=== PATIENT | female | born 1985 | race Caucasian/White ===

== ENCOUNTER 2017-08-03 09:01 | Inpatient (IN) | END 2017-08-06 16:25 | disposition home or self-care (01) | DRG 765 ==

== ENCOUNTER 2018-02-24 06:05 | Day surgery (SDC) | payer OTHER ==
[~2018-02-24] VITALS: Ht 171.4 cm; Wt 118.2 kg
[2018-02-24] VITALS (13 sets, daily range): BP systolic 106–152; BP diastolic 59–90; PULSE 46–68; RESP 13–29; Ht 171.4 cm; Wt 118.2 kg
[~2018-02-24 06:05] MED LIST: LEVO125T58 PO; PRENAT PO
[2018-02-24] MEDS ORDERED: SOD CHLORIDE 0.9% 1,000 ML IV SCH (06:30)
[2018-02-24] MEDS ORDERED: CEFAZOLIN 2 GM/50 ML (PMX) 50 ML IVPB ONE (06:30)
[2018-02-24] MEDS ORDERED: SEVOFLURANE 15 MIN ONE (07:00)
[2018-02-24] MEDS ORDERED: CEFAZOLIN 1 GM INJ ONE (07:00)
[2018-02-24] MEDS ORDERED: BUPIVACAINE 0.25% (MPF) 30 ML INJ ONE (07:43)
[2018-02-24] MEDS ORDERED: POLYMYXIN/BACITRACIN 1L IRRIG ONE (07:43)
--- NOTE | 2018-02-24 08:01 | PREAC ---
Date/Time of Note Date/Time of Note DATE: 02/24/18 TIME: 07:59 Anesthesia Eval and Record Evaluation Time Pre-Procedure Interview DATE: 02/24/18 TIME: 07:59 Age 32 Sex female NPO: 8 hrs Preoperative diagnosis Ventral Hernia Planned procedure lap ventral hernia repair Past Medical History Past Medical History: Includes Endo: Hypothyroid GI: Morbid obesity Surgery & Anesthesia Issues No known issue Meds Anticoagulation: No Beta Leann within 24 hr: No Reason Beta Leann not given: Pt. not on B-Leann Reported Medications Multivit/Min/Fol Ac/Iron/Pren* ( S*) 1 Tab Tab, 1 TAB PO DAILY, TAB 04/29/15 Levothyroxine Sodium (Levothroid) 125 Mcg Tablet, 125 MCG PO DAILY 03/08/13 Current Medications Sodium Chloride 1,000 ml @ 75 mls/hr [id number] IV ; Start 02/24/18 at 06:30; Stop 02/24/18 at 19:49 Meds reviewed: Yes Allergies Coded Allergies: No Known Allergy (Verified , 04/29/15) Allergies Reviewed: Yes Labs/Studies Labs Reviewed: Reviewed by anesthesiologist test: Negative Studies: ECG Pre-procedure Exam Last vitals Vital Signs Date Temp Pulse Resp B/P (MAP) Pulse Ox O2 O2 Flow FiO2 Time Delivery Rate 02/24/18 97.8 63 19 112/59 98 07:11 (76) Airway: Adequate mouth opening, Adequate thyromental dist Mallampati: Mallampati II Teeth: Normal Lung: Normal Heart: Normal ASA Physical Status ASA physical status: 2 Emergency: None Planned Anesthetic General/MAC: ETT Planned Pain Management Parenteral pain med Pre-operative Attestations Prior to commencing anesthesia and surgery, the patient was re-evaluated, there was verification of: *The patient's identity *The results of appropriate recent lab work and preoperative vital signs *The above evaluation not changing prior to induction *Anesthetic plan, risk benefits, alternative and complications discussed with patient/family; questions answered; patient/family understands, accepts and wishes to proceed. TABITHA PHILLIPS MD Feb 24, 2018 08:01
[2018-02-24] MEDS ORDERED: MIDAZOLAM 1 MG/ML 2 ML INJ ONE (08:15)
[2018-02-24] MEDS ORDERED: ONDANSETRON 4 MG INJ ONE ×2 (08:53→09:09)
[2018-02-24] MEDS ORDERED: LIDOCAINE 2% (SDV) 5 ML INJ ONE (08:55)
[2018-02-24] MEDS ORDERED: NEOSTIGMINE 3 MG/3 ML SYRINGE ONE (08:55)
[2018-02-24] MEDS ORDERED: GLYCOPYRROLATE 0.4 MG INJ ONE (08:55)
[2018-02-24] MEDS ORDERED: PROPOFOL 20 ML ONE (08:55)
[2018-02-24] MEDS ORDERED: HYDROmorphONE 1 MG/5 ML IV SYRINGE IV ONE (09:05)
--- NOTE | 2018-02-24 09:06 | PAC ---
Date/Time of Note Date/Time of Note DATE: 02/24/18 TIME: 09:05 Post-Anesthesia Notes Post-Anesthesia Note Last documented vital signs Vital Signs Date Temp Pulse Resp B/P (MAP) Pulse Ox O2 O2 Flow FiO2 Time Delivery Rate 02/24/18 98.0 08:58 02/24/18 63 19 112/59 98 07:11 (76) Activity: WNL Respiratory function: WNL Cardiovascular function: WNL Mental status: Baseline Pain reasonably controlled: Yes Hydration appropriate: Yes Nausea/Vomiting absent: Yes Comments BP:120/70, pulse:64, spo2:100%, T:99,8 TABITHA PHILLIPS MD Feb 24, 2018 09:06
--- NOTE | 2018-02-24 09:07 | OPR ---
Date/Time of Note Date/Time of Note DATE: 02/24/18 TIME: 09:04 Operative Report Procedure Date: Feb 24, 2018 Preoperative Diagnosis incarcerated ventral hernia Postoperative Diagnosis same Operation/Procedure Performed 1. laparoscopic incarcerated ventral hernia repair 2. implantation of bard soft mesh 3. 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 She requests surgical repair. Risks alternatives benefits and percent were discussed the patient. Patient expresses understanding consents to the operation. Procedure Description Patient is taken to the OR and prepped and draped in usual sterile fashion. Surgical timeout was performed. IV antibiotics given. Left upper quadrant 5 mm transverse incisions with a 15 blade. Using a 5 mm optical trocar optical entry is performed. Pneumoperitoneum is established. Left flank 12 mm optical trochars placed under direct visualization. Left lower quadrant 5 mm optical trocar was placed under direct visualization. Upon initial inspection there is incarcerated hernia in the midline. Using laparoscopic harmonic vida the incarcerated hernia contents are lysed and then reduced laparoscopically. The contents were then extracted which appeared to be completely fat through the l eft flank port. The hernia defect is identified and closed primarily with #1 Vicryl using Endo Close and laparoscopic techniques. After primary defect is closed underlay mesh with Bard soft is secured in place with secure strap. There is good underlay of 4-5 cm in all directions. Good hemostasis established. Ports removed under direct physician. Skin is closed using skin kriss. Therapeutic contains local anesthesia was injected at the incision site. Dry dressings were applied. Stacie LEON Feb 24, 2018 09:07
[2018-02-24] MEDS ORDERED: MEPERIDINE 25 MG INJ ONE (09:09)
[2018-02-24] MEDS: MEPERIDINE 25 MG INJ IV PRN ×2 (09:13→09:22)
[2018-02-24] MEDS ORDERED: hydrALAzine 20 MG INJ IV PRN (09:30)
[2018-02-24] MEDS ORDERED: DIPHENHYDRAMINE 50 MG INJ IV PRN (09:30)
[2018-02-24] MEDS ORDERED: ONDANSETRON 4 MG INJ IV PRN (09:30)
[2018-02-24] MEDS ORDERED: KETOROLAC 30 MG INJ IV PRN (09:30)
[2018-02-24] MEDS ORDERED: HYDROCODONE/APAP (5/325) TAB PO ONE (09:30)
[2018-02-24] MEDS ORDERED: METOCLOPRAMIDE 10 MG INJ IV PRN (09:30)
[2018-02-24] MEDS ORDERED: HYDROmorphONE 1 MG/5 ML IV SYRINGE IV PRN ×2 (09:30)
[2018-02-24] MEDS ORDERED: LABETALOL HCL 20MG INJ IV PRN (09:30)
[2018-02-24] MEDS ORDERED: FENTAnyl 50 MCG/ML VIAL IV PRN (09:30)
== END 2018-02-24 10:49 | disposition home or self-care (01) ==
LOC: SDS 06:05
PROVIDERS: ATTEND Surgery
DX: K43.9 Ventral hernia without obstruction or gangrene (principal)
CPT/HCPCS: 49653; J1170; J2175; J2250; J2405; J2710; J3010; Z7610; J0690